=== PATIENT | female | born 1980 ===

== ENCOUNTER 2019-01-17 10:15 | Inpatient (IN) | payer BC, MEDICAID ==
[2019-01-17] MEDS ORDERED: Sodium Chloride 0.9% 1,000 ML IV ONE (11:26)
[2019-01-17] MEDS ORDERED: Sodium Chloride 0.9% 250 ML IV ONE (11:41)
[2019-01-17 12:07] LABS: BASO % 0.9 % (0.0-2.0); EOS # 0.2 K/uL (0.0-0.7); EOS % 4.3 % (0.0-4.0); HEMOGLOBIN 6.6 g/dL (11.0-16.0); LYMPH # 1.2 K/uL (1.0-4.3); LYMPH % 22.2 % (20.0-40.0); MEAN CORPUSCULAR HEMOGLOBIN 17.2 pg (27.0-31.0); MEAN CORPUSCULAR HGB CONC 29.9 g/dL (33.0-37.0); MONO # 0.5 K/uL (0.0-0.8); MONO % 8.9 % (0.0-10.0); NEUT # 3.3 K/uL (1.8-7.0); NEUT % 63.7 % (50.0-75.0); NRBC % 0.1 % (0.0-2.0); RBC 3.85 Mil/uL (3.80-5.20); RED CELL DISTRIBUTION WIDTH 20.2 % (11.5-14.5); WHITE BLOOD COUNT 5.2 K/uL (4.8-10.8)
[2019-01-17 12:09] LABS: MEAN CELL VOLUME 57.3 fL (81.0-99.0)
[2019-01-17 12:12] LABS: HCG,QUALITATIVE URINE NEGATIVE (NEGATIVE)
[2019-01-17 12:18] LABS: SQUAMOUS EPITHIAL < 1 /hpf (0-5); URINE BILIRUBIN NEGATIVE (NEGATIVE); URINE BLOOD NEGATIVE (NEGATIVE); URINE CLARITY Clear (Clear); URINE COLOR Yellow (YELLOW); URINE GLUCOSE (UA) NORMAL (Normal); URINE LEUKOCYTE ESTERASE NEG Leu/uL (Negative); URINE PROTEIN NEGATIVE (NEGATIVE); URINE UROBILINOGEN NORMAL mg/dL (0.2-1.0)
[2019-01-17 12:19] LABS: ALB/GLOB RATIO 1.4 (1.0-2.1); ALBUMIN 4.5 g/dL (3.5-5.0); ALT/SGPT 8 U/L (9-52); AST/SGOT 23 U/L (14-36); BLOOD UREA NITROGEN 11 mg/dL (7-17); CALCIUM 9.1 mg/dl (8.6-10.4); GFR NON-AFRICAN AMERICAN > 60
[2019-01-17 12:20] LABS: INR 1.1; PROTHROMBIN TIME 12.4 SECONDS (9.7-12.2)
--- NOTE | 2019-01-17 13:24 | C.PDOC ---
History Of Present Illness 38 yo female w/hx of anemia, s/p transfusion, comes in for evaluation of gradual onset of weakness, bodyaches, intermittent dizziness developed for past few months. Denies recent illness, fever, chills, severe headache, visual changes, CP, SOB, dyspnea, palpitation, abd. pain, V/D, UTI sx. AMbualtory, not in any apparent distress. Time Seen by Provider: 01/17/19 11:25 Chief Complaint (Nursing): Headache History Per: Patient Past Medical History Reviewed: Historical Data, Nursing Documentation, Vital Signs Vital Signs: Last Vital Signs Temp 98.1 F 01/17/19 10:25 Pulse 92 H 01/17/19 10:25 Resp 18 01/17/19 10:25 BP 121/78 01/17/19 10:25 Pulse Ox 100 01/17/19 10:25 - Medical History PMH: Anemia Surgical History: Appendectomy Family History: States: Unknown Family Hx, Diabetes - Social History Hx Tobacco Use: No Hx Alcohol Use: No Hx Substance Use: No - Immunization History Hx Tetanus Toxoid Vaccination: No Hx Influenza Vaccination: No Hx Pneumococcal Vaccination: No Review Of Systems Except As Marked, All Systems Reviewed And Found Negative. Constitutional: Positive for: Weakness, Malaise. Negative for: Fever, Chills Eyes: Negative for: Vision Change ENT: Negative for: Ear Discharge, Nose Discharge Cardiovascular: Negative for: Chest Pain, Palpitations, Light Headedness Respiratory: Negative for: Cough, Shortness of Breath, SOB with Excertion Gastrointestinal: Negative for: Nausea, Vomiting, Abdominal Pain, Diarrhea Genitourinary: Negative for: Frequency Neurological: Negative for: Altered Mental Status, Headache Physical Exam - Physical Exam Appears: Well, No Acute Distress Skin: Normal Color, Warm, Dry, Rash (scatteerd dry eczema-like rash to posterior upper back) Eye(s): bilateral: PERRL Nose: No Flaring, No Discharge Oral Mucosa: Moist Tongue: Normal Appearing Lips: Normal Appearing Throat: No Drooling Neck: Trachea Midline, Supple Cardiovascular: Rhythm Regular, No Murmur, No JVD Respiratory: No Decreased Breath Sounds, No Accessory Muscle Use, No Stridor, No Wheezing Gastrointestinal/Abdominal: Soft, No Tenderness, No Distention, No Guarding, No Rebound Extremity: Normal ROM, No Deformity, No Swelling Neurological/Psych: Oriented x3, Normal Speech ED Course And Treatment - Laboratory Results Result Diagrams: 01/17/19 12:00 01/17/19 12:00 Lab Results: PT 12.4 SECONDS (9.7-12.2) H 01/17/19 12:00 INR 1.1 01/17/19 12:00 APTT 32 SECONDS (21-34) 01/17/19 12:00 Total Bilirubin 0.3 mg/dL (0.2-1.3) 01/17/19 12:00 AST 23 U/L (14-36) 01/17/19 12:00 ALT 8 U/L (9-52) L 01/17/19 12:00 Alkaline Phosphatase 42 U/L (38-126) 01/17/19 12:00 Total Protein 7.7 g/dL (6.3-8.3) 01/17/19 12:00 Albumin 4.5 g/dL (3.5-5.0) 01/17/19 12:00 Globulin 3.2 gm/dL (2.2-3.9) 01/17/19 12:00 Albumin/Globulin Ratio 1.4 (1.0-2.1) 01/17/19 12:00 Urine Color Yellow (YELLOW) 01/17/19 12:00 Urine Clarity Clear (Clear) 01/17/19 12:00 Urine pH 7.0 (5.0-8.0) 01/17/19 12:00 Ur Specific [place] 1.013 (1.003-1.030) 01/17/19 12:00 Urine Protein Negative mg/dL (NEGATIVE) 01/17/19 12:00 Urine Glucose (UA) Normal mg/dL (Normal) 01/17/19 12:00 Urine Ketones Negative mg/dL (NEGATIVE) 01/17/19 12:00 Urine Blood Negative (NEGATIVE) 01/17/19 12:00 Urine Nitrate Negative (NEGATIVE) 01/17/19 12:00 Urine Bilirubin Negative (NEGATIVE) 01/17/19 12:00 Urine Urobilinogen Normal mg/dL (0.2-1.0) 01/17/19 12:00 Ur Leukocyte Esterase Neg [place]/uL (Negative) 01/17/19 12:00 Urine WBC (Auto) < 1 /hpf (0-5) 01/17/19 12:00 Urine RBC (Auto) 1 /hpf (0-3) 01/17/19 12:00 Ur Squamous Epith Cells < 1 /hpf (0-5) 01/17/19 12:00 Urine HCG, Qual Negative (NEGATIVE) 01/17/19 12:00 Urine HCG, Qual Negative (NEGATIVE) 01/17/19 12:00 Lab Interpretation: Abnormal Urine POC: Negative ECG: Interpreted By Me, Viewed By Me Interpretation Of ECG: SR@77/min, NAD, no acute t wave or ST-T changes O2 Sat by Pulse Oximetry: 100 Pulse Ox Interpretation: Normal Progress Note: Blood work review, appears abnormal. Evidence of acute anemia. Pt admits, "(+) heavy menstrual bleeding sometime". Results review and discussed with pt, blood transfusion offered, pt acceptes. T+S, RBC ordered. Case discussed with and admission arranged to tele OBS Disposition - Disposition Disposition: HOSPITALIZED Disposition Time: 13:24 Condition: STABLE - Clinical Impression Clinical Impression: Acute anemia
--- NOTE | 2019-01-17 13:25 | RAD ---
HISTORY: weakness COMPARISON: Chest x-ray performed 12/28/12 TECHNIQUE: Chest PA and lateral FINDINGS: LUNGS: No focal consolidation. Please note that chest x-ray has limited sensitivity for the detection of pulmonary masses. PLEURA: No significant pleural effusion identified. No definite pneumothorax . CARDIOVASCULAR: Heart size appears within normal limits. No atherosclerotic calcification appreciated. OSSEOUS STRUCTURES: No acute osseous abnormality is detected. VISUALIZED UPPER ABDOMEN: Unremarkable. OTHER FINDINGS: None. IMPRESSION: No focal consolidation.
[2019-01-17 13:51] LABS: % IRON SATURATION 49 (20-55); IRON 177 ug/dL (37-170); TOTAL IRON BINDING CAPACITY 362 ug/dL (250-450)
[2019-01-17 14:54] LABS: FOLATE 16.7 ng/mL
--- NOTE | 2019-01-17 17:57 | CP.PCM.PN ---
Subjective - Date & Time of Evaluation Date of Evaluation: 01/17/19 Time of Evaluation: 17:56 - Subjective Subjective: H&P dictated #[id number] Objective - Vital Signs/Intake and Output Vital Signs (last 24 hours): Temp Pulse Resp BP Pulse Ox 99.0 F 75 20 113/61 100 01/17/19 15:37 01/17/19 15:37 01/17/19 15:37 01/17/19 15:37 01/17/19 17:37 - Labs Labs: 01/17/19 12:00 01/17/19 12:00 PT 12.4 SECONDS (9.7-12.2) H 01/17/19 12:00 INR 1.1 01/17/19 12:00 APTT 32 SECONDS (21-34) 01/17/19 12:00
[2019-01-17 23:51] LABS: FSH 9.2 mIU/mL; PROLACTIN 25.6 ng/mL (3.0-18.9)
--- NOTE | 2019-01-18 05:00 | HP ---
CHIEF COMPLAINT: Generalized body aches, difficulty breathing on exertion, heaviness in the hands and itching of the feet and rash, progressively getting worse over the past few days. HISTORY OF PRESENT ILLNESS: The patient is a 38-year-old female from [place], who has been following up with PMD from [facility] a while ago, has not seen PMD in the past 6 months, who had a prior history of anemia and blood transfusions. Last time she received blood transfusion was about a year ago. Earlier to that, received blood transfusion in 2006, questionable history of lupus, diagnosed in the city about two years ago, not on any medication, questionable sickle cell trait, has been on iron supplements, [place], came into the emergency room with complaints of generalized body aches, more so on the joints, fatigue, weakness and dyspnea on exertion. Claiming that she felt like she needed air when she was doing strenuous activity and complaining of heaviness in the hands and the feet, itching on and off. All the symptoms progressively getting worse over the past six months. Denies any headache. Denies any dizziness. Denies any chest pain. Denies any nausea, vomiting, abdominal pain, diarrhea, or constipation. Denies any black colored stools. Denies any use of NSAIDs or any other pain medication, thinks that her periods are heavy lasting for seven days, first two days especially claims that . She is in her periods now. Denies following up with any [employer] physician here. Denies any other complaints. PAST MEDICAL HISTORY: As described, history of anemia with blood transfusion, questionable history of lupus, questionable history of sickle cell trait. FAMILY HISTORY: Sickle cell trait in the father. PERSONAL HISTORY: She is single. Not having any children. Lives with her parent. Unemployed. SOCIAL HISTORY: Denies smoking, alcohol, or drug abuse. ALLERGIES: NO KNOWN DRUG ALLERGIES. MEDICATIONS: iron at home. PAST SURGICAL HISTORY: Fibroid uterus surgery and appendectomy. REVIEW OF SYSTEMS: As described in the history of present illness. All other systems reviewed and were found to be negative. PHYSICAL EXAMINATION: GENERAL: A young female, lying in bed, in no acute distress. VITAL SIGNS: Blood pressure 113/61, pulse 75, respirations 20, temperature 99 degrees Fahrenheit, and O2 sat 100% on room air. HEENT: Pupils equal, round, and reacting to light and accommodation. Extraocular muscles intact. No icterus. Positive pallor. No oral thrush. No pharyngeal congestion. NECK: Supple. No JVD. LUNGS: Bilateral vesicular breath sounds. No wheezing. No rhonchi. CARDIOVASCULAR SYSTEM: S1 and S2 present. Regular. ABDOMEN: Soft, nontender. Bowel sounds present. No guarding. No rigidity. No rebound tenderness noted. CENTRAL NERVOUS SYSTEM: Alert, awake, oriented x3. No focal deficits noted. EXTREMITIES: No edema. Palpable peripheral pulses. LABORATORY DATA: Done from emergency room, WBC 5.2, hemoglobin 6.6, hematocrit 22.1, platelets 372, reticulocyte count 3.8, PT 12.4, INR 1.1, PTT 32. Sodium 137, potassium 3.9, chloride 102, bicarbonate 26, BUN 11, creatinine 0.6, glucose 92, calcium 9.1, iron 177, TIBC 362, iron saturation 49, total bilirubin 0.3, AST 23, ALT 8, alkaline phosphatase 42, LDH 428, total protein 7.7, albumin 4.5, globulin 3.2, B12 is 686, folate 16.7, free T4 1.08, thyroxine 7.89, TSH 2.9. UA negative. Beta hCG is negative. Influenza negative. Chest x-ray, no focal consolidation. EKG consistent with a normal sinus rhythm at 77 beats per minute, no acute ST-T changes. ASSESSMENT: A young female with prior history of anemia, status post multiple transfusions, recent transfusion was about a year ago, questionable diagnosis of lupus and sickle cell trait. As per the mother, she was diagnosed with sickle cell when she was 8 years old and not following up with any physician, last seen physician was about 6 months ago, came in to the emergency room with generalized body aches, fatigue, weakness and dyspnea on exertion. In the emergency room, the patient was found to be having hemoglobin of 6.6 and the patient is seen and admitted for further evaluation. 1. Severe symptomatic anemia, rule out secondary to fibroid uterus and menorrhagia, rule out hemoglobinopathy, rule out sickle cell anemia, rule out other hematologic disorders. 2. Questionable history of lupus. PLAN: The patient is being admitted to telemetry. We will give 2 units of PRBC transfusion, check serial CBCs, check hemoglobin electrophoresis, sickle cell screen and check ultrasound of the abdomen and pelvis to rule out any gynecology pathology, obtain hematology consult and gynecology consult. We will monitor the patient's CBC. We will give pain medication as needed. We will add further recommendation as her clinical course progresses. Soniavalenin Martinez MD
[2019-01-18 07:37] LABS: BASO # 0.1 K/uL (0.0-0.2); BASO % 1.1 % (0.0-2.0); EOS # 0.2 K/uL (0.0-0.7); HEMOGLOBIN 7.4 g/dL (11.0-16.0); LYMPH # 1.1 K/uL (1.0-4.3); LYMPH % 24.3 % (20.0-40.0); MEAN CORPUSCULAR HEMOGLOBIN 18.5 pg (27.0-31.0); MEAN PLATELET VOLUME 9.1 fL (7.2-11.7); MONO # 0.5 K/uL (0.0-0.8); MONO % 9.5 % (0.0-10.0); NEUT # 2.8 K/uL (1.8-7.0); NEUT % 60.1 % (50.0-75.0); NRBC % 0.1 % (0.0-2.0); RBC 4.02 Mil/uL (3.80-5.20); RED CELL DISTRIBUTION WIDTH 24.9 % (11.5-14.5); WHITE BLOOD COUNT 4.7 K/uL (4.8-10.8)
[2019-01-18 07:38] LABS: MEAN CELL VOLUME 61.5 fL (81.0-99.0)
[2019-01-18 07:57] LABS: ALB/GLOB RATIO 1.2 (1.0-2.1); ALBUMIN 3.6 g/dL (3.5-5.0); ALT/SGPT 7 U/L (9-52); AST/SGOT 16 U/L (14-36); BLOOD UREA NITROGEN 10 mg/dL (7-17); CALCIUM 8.5 mg/dl (8.6-10.4); GFR NON-AFRICAN AMERICAN > 60; HDL CHOLESTEROL 41 mg/dL (30-70)
[2019-01-18 08:23] VITALS: RESP 20
[2019-01-18 08:28] LABS: COMPLEMENT C4 15.7 mg/dL (14.0-44.0)
[2019-01-18 08:34] LABS: LDL CHOLESTEROL 80 mg/dL (0-129)
[2019-01-18 08:47] LABS: FERRITIN 7.7 ng/mL
--- NOTE | 2019-01-18 09:56 | CP.PCM.PN ---
Subjective - Date & Time of Evaluation Date of Evaluation: 01/18/19 Time of Evaluation: 09:45 - Subjective Subjective: Progress note dictated #[id number] Objective - Vital Signs/Intake and Output Vital Signs (last 24 hours): Temp Pulse Resp BP Pulse Ox 97.7 F 72 20 101/69 96 01/18/19 08:22 01/18/19 08:22 01/18/19 08:22 01/18/19 08:22 01/18/19 08:22 Intake and Output: 01/18/19 01/18/19 06:59 18:59 Intake Total 1850 Balance 1850 - Medications Medications: Current Medications Acetaminophen (Tylenol 325mg Tab) 650 mg PO Q6 PRN PRN Reason: Pain, moderate (4-7) - Labs Labs: 01/18/19 07:25 01/18/19 07:25 PT 12.4 SECONDS (9.7-12.2) H 01/17/19 12:00 INR 1.1 01/17/19 12:00 APTT 32 SECONDS (21-34) 01/17/19 12:00
--- NOTE | 2019-01-18 11:27 | US ---
Date of service: 01/17/2019 HISTORY: Severe Anemia/ Menorrhagia COMPARISON: None available. TECHNIQUE: Transabdominal and transvaginal pelvic ultrasound was performed. FINDINGS: UTERUS: Measures 14.0 x 7.3 x 7.9 cm. Anteverted and enlarged. There is a 3.3 x 2.3 x 2.8 cm submucosal fundal fibroid, 2.6 x 2.4 x 2.5 cm anterior wall submucosal fibroid in the midbody of the uterus 2.7 x 2.2 x 2.5 cm intramural anterior wall fibroid in the midbody of the uterus and 3.6 x 2.5 x 3.7 cm anterior wall intramural fibroid in the lower uterine segment. ENDOMETRIUM: Measures 8.8 mm in diameter. Partially obscured by fibroids. CERVIX: No cervical abnormality identified. RIGHT OVARY: Measures 6.2 x 4.7 x 6.2 cm. No solid mass. Normal flow. There is a 4.3 x 2.6 x 5.4 cm simple cyst. LEFT OVARY: Measures 2.5 x 2.2 x 2.7 cm. No solid mass. Normal flow. There is a 1.1 x 1.5 cm complicated/hemorrhagic cyst. FREE FLUID: No significant free fluid noted. OTHER FINDINGS: None. IMPRESSION: 1. Enlarged fibroid uterus, the largest anterior wall intramural fibroid in the lower uterine segment measures 3.6 x 3.5 x 3.7 cm. 2. 4.3 x 2.6 x 5.4 cm simple cyst in the right ovary. Follow-up ultrasound in 3-6 month interval is recommended to assess stability/resolution of this probably benign cyst. A preliminary report was provided by [facility].
--- NOTE | 2019-01-18 12:05 | US ---
Date of service: 01/17/2019 HISTORY: anemia, r/o fibroid COMPARISON: None. TECHNIQUE: Sonographic evaluation of the abdomen. FINDINGS: LIVER: Measures 15.4 cm. Diffusely increased echogenicity of the liver parenchyma. Consistent with fatty infiltration. Smooth contour. No mass. No biliary ductal dilatation. Normal hepatopetal portal venous flow. GALLBLADDER: Unremarkable. No gallstones. COMMON BILE DUCT: Measures 6 mm. No stones. No dilatation. PANCREAS: Unremarkable as visualized. No mass. No ductal dilatation. RIGHT KIDNEY: Measures 12.0cm. Normal echogenicity. No calculus, mass, or hydronephrosis. LEFT KIDNEY: Measures 10.9cm. Normal echogenicity. No calculus, mass, or hydronephrosis. SPLEEN: Normal size. No mass. Two small isoechoic masses in splenic hilar region likely accessory splenules. AORTA: No aneurysmal dilatation. IVC: Unremarkable. OTHER FINDINGS: None. IMPRESSION: Mild fatty infiltration of the liver. No other significant abnormality The preliminary findings for this examination were reported by [facility] at 12:01 a.m. on 01/18/2019. There is concurrence of this report with the preliminary findings.
--- NOTE | 2019-01-18 15:30 | CARD ---
APPROVED REPORT Date of service: 01/17/2019 EKG Measurement Heart [id number] <Conclusion> Normal sinus rhythm Possible Left atrial enlargement Cannot rule out Anterior infarct, age undetermined Abnormal ECG
--- NOTE | 2019-01-18 16:32 | CP.PCM.CON ---
<Gema Kaur - Last Filed: 01/18/19 16:49> History of Present Illness - History of Present Illness History of Present Illness: OBGYN CONSULT NOTE FOR DR. 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 Pt reports she has had these symptoms previously that usually occur during menstruation. Symptoms have progressively worsened over the past 6 months. Her LMP was on 01/09/19. 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 She uses 1 pad/hour when the bleeding is at its maximum. Currently she reports minimal bleeding. She reports she had her terminated in 2006 after 5 months and subsequently underwent myomectomy in the [place]. She had received her first blood transfusion during the termination of . She had received a 2nd blood transfusion of 2upRBC last year for similar symptoms of fatigue. Pt currently denies fevers, chills, headache, dizziness, chest pain, palpitations, shortness of breath, nausea, vomiting, constipation, diarrhea, dysuria, hematuria, hematochezia. Ob Hx: 1 prior in 2006. Termination of at 5 months with D&C. 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 Doesn't recall hx of STI, however unsure. Menarche: 9 y/o. Last Pap smear 1 year ago with a PMD:normal. Reports history of previous Pap smear in [facility] [place] requiring "cauterization" PMH: anemia, questionable SLE, sickle cell trait All: NKDA PSH: myomectomy 2006, D&C 2006, "cauterization" 2010, appendectomy SH: Denies tobacco, ETOH, illicit drug use. No current sexual partners. Pt is still considering having children FH: Mother (60s): HTN, Father (60s): Anemia, HTN. 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 PMD: Doesnt recall name, hasn't followed up in past 6 months Review of Systems - Review of Systems Review of Systems: per HPI Past Patient History - Past Medical History & Family History Past Medical History?: Yes - Past Social History Smoking Status: Never Smoked - CARDIAC Hx Cardiac Disorders: No - PULMONARY Hx Respiratory Disorders: No - NEUROLOGICAL Hx Neurological Disorder: No - HEENT Hx HEENT Problems: No - RENAL Hx Chronic Kidney Disease: No - ENDOCRINE/METABOLIC Hx Endocrine Disorders: No Hx Systemic Lupus Erythematosus: Yes - HEMATOLOGICAL/ONCOLOGICAL Hx Blood Disorders: Yes Hx Anemia: Yes Hx Blood Transfusions: Yes Other/Comment: HX SLE - INTEGUMENTARY Hx Dermatological Problems: No - MUSCULOSKELETAL/RHEUMATOLOGICAL Hx Musculoskeletal Disorders: No Hx Falls: No - GASTROINTESTINAL Hx Gastrointestinal Disorders: No - GENITOURINARY/GYNECOLOGICAL Hx Genitourinary Disorders: No - PSYCHIATRIC Hx Psychophysiologic Disorder: No Hx Substance Use: No - SURGICAL HISTORY Hx Surgeries: Yes Hx Appendectomy: Yes - ANESTHESIA Hx Anesthesia: Yes Hx Anesthesia Reactions: No Has any member of the family had a problem w/ anesthesia?: No Meds Allergies/Adverse Reactions: Allergies Allergy/AdvReac Type Severity Reaction Status Date / Time No Known Allergies Allergy Verified 12/11/16 09:15 - Medications Medications: Current Medications Acetaminophen (Tylenol 325mg Tab) 650 mg PO Q6 PRN PRN Reason: Pain, moderate (4-7) Ferric Sodium Gluconate Complex (Ferrlecit) 125 mg IVPB Q24H ROBERT Stop: 01/26/19 16:01 Physical Exam - Constitutional Appears: Well, Non-toxic, No Acute Distress - Head Exam Head Exam: NORMAL INSPECTION, NORMOCEPHALIC - Eye Exam Eye Exam: EOMI, Normal appearance - Neck Exam Neck exam: Positive for: Normal Inspection - Respiratory Exam Respiratory Exam: Clear to Auscultation Bilateral, NORMAL BREATHING PATTERN - Cardiovascular Exam Cardiovascular Exam: REGULAR RHYTHM, +S1, +S2 - GI/Abdominal Exam GI & Abdominal Exam: Normal Bowel Sounds, Soft. absent: Tenderness - Extremities Exam Extremities exam: Positive for: normal inspection. Negative for: calf tenderness, pedal edema - Back Exam Back exam: NORMAL INSPECTION - Neurological Exam Neurological exam: Alert, Oriented x3 - Psychiatric Exam Psychiatric exam: Normal Affect, Normal Mood - Skin Skin Exam: Dry, Intact, Warm Results - Vital Signs Recent Vital Signs: Last Vital Signs Temp 98.2 F 01/18/19 15:00 Pulse 87 01/18/19 15:00 Resp 20 01/18/19 15:00 BP 111/75 01/18/19 15:00 Pulse Ox 96 01/18/19 15:00 - Labs Result Diagrams: 01/18/19 07:25 01/18/19 07:25 Labs: Laboratory Results - last 24 hr 01/17/19 01/17/19 01/18/19 13:45 23:20 07:25 WBC 4.7 L RBC 4.02 Hgb 7.4 L Hct 24.7 L MCV 61.5 L D MCH 18.5 L MCHC 30.0 L RDW 24.9 H Plt Count 313 MPV 9.1 Neut % (Auto) 60.1 Lymph % (Auto) 24.3 [place] % (Auto) 9.5 Eos % (Auto) 5.0 H Baso % (Auto) 1.1 Neut # (Auto) 2.8 Lymph # (Auto) 1.1 [place] # (Auto) 0.5 Eos # (Auto) 0.2 Baso # (Auto) 0.1 ESR 28 H Sickle Cell Screen Sodium Potassium Chloride Carbon Dioxide Anion Gap BUN Creatinine Est GFR ( Amer) Est GFR (Non-Af Amer) Random Glucose Hemoglobin A1c Calcium Phosphorus Magnesium Ferritin Total Bilirubin AST ALT Alkaline Phosphatase C-Reactive Protein Total Protein Albumin Globulin Albumin/Globulin Ratio Triglycerides Cholesterol LDL Cholesterol Direct HDL Cholesterol TSH 3rd Generation 3.88 FSH 3rd Generation 9.2 Luteinizing Hormone 5.6 Prolactin 25.6 H Complement C3 Complement C4 Blood Type A POSITIVE Blood Type Confirm A POSITIVE Antibody Screen Positive Antibody Identification Anti S Antigen Identification S Antigen - NEGATIVE 01/18/19 01/18/19 01/18/19 07:25 07:25 07:25 WBC RBC Hgb Hct MCV MCH MCHC RDW Plt Count MPV Neut % (Auto) Lymph % (Auto) [place] % (Auto) Eos % (Auto) Baso % (Auto) Neut # (Auto) Lymph # (Auto) [place] # (Auto) Eos # (Auto) Baso # (Auto) ESR Sickle Cell Screen Sodium 137 Potassium 4.0 Chloride 105 Carbon Dioxide 24 Anion Gap 12 BUN 10 Creatinine 0.6 L Est GFR ( Amer) > 60 Est GFR (Non-Af Amer) > 60 Random Glucose 89 Hemoglobin A1c 5.0 Calcium 8.5 L Phosphorus 4.1 Magnesium 2.1 Ferritin 7.7 Total Bilirubin 0.4 AST 16 ALT 7 L Alkaline Phosphatase 40 C-Reactive Protein < 5.00 Total Protein 6.6 Albumin 3.6 Globulin 3.0 Albumin/Globulin Ratio 1.2 Triglycerides 63 Cholesterol 129 LDL Cholesterol Direct 80 HDL Cholesterol 41 TSH 3rd Generation 2.81 FSH 3rd Generation Luteinizing Hormone Prolactin Complement C3 90.0 Complement C4 15.7 Blood Type Blood Type Confirm Antibody Screen Antibody Identification Antigen Identification 01/18/19 09:13 WBC RBC Hgb Hct MCV MCH MCHC RDW Plt Count MPV Neut % (Auto) Lymph % (Auto) [place] % (Auto) Eos % (Auto) Baso % (Auto) Neut # (Auto) Lymph # (Auto) [place] # (Auto) Eos # (Auto) Baso # (Auto) ESR Sickle Cell Screen Positive H Sodium Potassium Chloride Carbon Dioxide Anion Gap BUN Creatinine Est GFR ( Amer) Est GFR (Non-Af Amer) Random Glucose Hemoglobin A1c Calcium Phosphorus Magnesium Ferritin Total Bilirubin AST ALT Alkaline Phosphatase C-Reactive Protein Total Protein Albumin Globulin Albumin/Globulin Ratio Triglycerides Cholesterol LDL Cholesterol Direct HDL Cholesterol TSH 3rd Generation FSH 3rd Generation Luteinizing Hormone Prolactin Complement C3 Complement C4 Blood Type Blood Type Confirm Antibody Screen Antibody Identification Antigen Identification Assessment & Plan - Assessment and Plan (Free Text) Assessment: 38 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 Pt is s/p 2u pRBC with appropriate response. Currently hemodynamically stable with improvement in symptoms Plan: - Pt doesn't require acute surgical intervention or uterine embolization at this time - Discussed possibility of future pregnancies. 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 Given AUB, pt would benefit from endometrial biopsy to assess for malignancy as an outpatient - continue iron supplementation - follow up with heme/onc recs for management of acute blood loss - Further medical management per primary team Abdomen/Pelvis/Transvaginal U/S: 1. Enlarged fibroid uterus, the largest anterior wall intramural fibroid in the lower uterine segment measures 3.6 x 3.5 x 3.7 cm. 2. 4.3 x 2.6 x 5.4 cm simple cyst in the right ovary. Follow-up ultrasound in 3-6 month interval is recommended to assess stability/resolution of this probably benign cyst Abdomen U/S: Mild fatty infiltration of the liver. No other significant abnormality Patient seen, examined and case discussed with attending physician, Dr. Meza. Further recs per attending Gema Kaur PGY1 <Nancy Meza - Last Filed: 01/18/19 22:51> Meds - Medications Medications: Current Medications Acetaminophen (Tylenol 325mg Tab) 650 mg PO Q6 PRN PRN Reason: Pain, moderate (4-7) Ferric Sodium Gluconate Complex (Ferrlecit) 125 mg IVPB Q24H ROBERT Stop: 01/26/19 16:01 Last Admin: 01/18/19 16:42 Dose: 125 mg Results - Vital Signs Recent Vital Signs: Last Vital Signs Temp 98.2 F 01/18/19 15:00 Pulse 87 01/18/19 15:00 Resp 20 01/18/19 15:00 BP 111/75 01/18/19 15:00 Pulse Ox 96 01/18/19 15:00 - Labs Result Diagrams: 01/18/19 07:25 01/18/19 07:25 Labs: Laboratory Results - last 24 hr 01/17/19 01/17/19 01/18/19 13:45 23:20 07:25 WBC 4.7 L RBC 4.02 Hgb 7.4 L Hct 24.7 L MCV 61.5 L D MCH 18.5 L MCHC 30.0 L RDW 24.9 H Plt Count 313 MPV 9.1 Neut % (Auto) 60.1 Lymph % (Auto) 24.3 [place] % (Auto) 9.5 Eos % (Auto) 5.0 H Baso % (Auto) 1.1 Neut # (Auto) 2.8 Lymph # (Auto) 1.1 [place] # (Auto) 0.5 Eos # (Auto) 0.2 Baso # (Auto) 0.1 ESR 28 H Sickle Cell Screen Sodium Potassium Chloride Carbon Dioxide Anion Gap BUN Creatinine Est GFR ( Amer) Est GFR (Non-Af Amer) Random Glucose Hemoglobin A1c Calcium Phosphorus Magnesium Ferritin Total Bilirubin AST ALT Alkaline Phosphatase C-Reactive Protein Total Protein Albumin Globulin Albumin/Globulin Ratio Triglycerides Cholesterol LDL Cholesterol Direct HDL Cholesterol TSH 3rd Generation 3.88 FSH 3rd Generation 9.2 Luteinizing Hormone 5.6 Prolactin 25.6 H Complement C3 Complement C4 Blood Type A POSITIVE Blood Type Confirm A POSITIVE Antibody Screen Positive Antibody Identification Anti S Antigen Identification S Antigen - NEGATIVE 01/18/19 01/18/19 01/18/19 07:25 07:25 07:25 WBC RBC Hgb Hct MCV MCH MCHC RDW Plt Count MPV Neut % (Auto) Lymph % (Auto) [place] % (Auto) Eos % (Auto) Baso % (Auto) Neut # (Auto) Lymph # (Auto) [place] # (Auto) Eos # (Auto) Baso # (Auto) ESR Sickle Cell Screen Sodium 137 Potassium 4.0 Chloride 105 Carbon Dioxide 24 Anion Gap 12 BUN 10 Creatinine 0.6 L Est GFR ( Amer) > 60 Est GFR (Non-Af Amer) > 60 Random Glucose 89 Hemoglobin A1c 5.0 Calcium 8.5 L Phosphorus 4.1 Magnesium 2.1 Ferritin 7.7 Total Bilirubin 0.4 AST 16 ALT 7 L Alkaline Phosphatase 40 C-Reactive Protein < 5.00 Total Protein 6.6 Albumin 3.6 Globulin 3.0 Albumin/Globulin Ratio 1.2 Triglycerides 63 Cholesterol 129 LDL Cholesterol Direct 80 HDL Cholesterol 41 TSH 3rd Generation 2.81 FSH 3rd Generation Luteinizing Hormone Prolactin Complement C3 90.0 Complement C4 15.7 Blood Type Blood Type Confirm Antibody Screen Antibody Identification Antigen Identification 01/18/19 09:13 WBC RBC Hgb Hct MCV MCH MCHC RDW Plt Count MPV Neut % (Auto) Lymph % (Auto) [place] % (Auto) Eos % (Auto) Baso % (Auto) Neut # (Auto) Lymph # (Auto) [place] # (Auto) Eos # (Auto) Baso # (Auto) ESR Sickle Cell Screen Positive H Sodium Potassium Chloride Carbon Dioxide Anion Gap BUN Creatinine Est GFR ( Amer) Est GFR (Non-Af Amer) Random Glucose Hemoglobin A1c Calcium Phosphorus Magnesium Ferritin Total Bilirubin AST ALT Alkaline Phosphatase C-Reactive Protein Total Protein Albumin Globulin Albumin/Globulin Ratio Triglycerides Cholesterol LDL Cholesterol Direct HDL Cholesterol TSH 3rd Generation FSH 3rd Generation Luteinizing Hormone Prolactin Complement C3 Complement C4 Blood Type Blood Type Confirm Antibody Screen Antibody Identification Antigen Identification Attending/Attestation - Attestation I have personally seen and examined this patient.: Yes I have fully participated in the care of the patient.: Yes I have reviewed all pertinent clinical information: Yes Notes (Text): 01/18/19 22:49 Patient seen, evaluated by me with the resident. I agree with the above as documented. No surgical intervention at this time. Patient advised to establish chainstitch hemmer relationship as an outpatient for further discussion and plans for her future gynecological health. Thank you for the pleasure of this consultation
[2019-01-18] MEDS: Ferric Sodium Gluconat Complex 62.5 mg/5 ml Vial IVPB SCH (16:42)
--- NOTE | 2019-01-18 19:18 | PN ---
DATE: 01/18/2019 SUBJECTIVE: The patient is seen and examined at bedside. The patient is slightly better. Received 1 PRBC last night. Denies any new complaints. PHYSICAL EXAMINATION: GENERAL: Young female, lying in bed, in no acute distress. VITAL SIGNS: Blood pressure 111/75, pulse 87, respirations 20, temperature 98.2 degrees Fahrenheit, O2 saturations 96% on room air. HEENT: Pupils equal, round, and reacting to light and accommodation. Extraocular muscles intact. No icterus. Positive pallor. Dry mucous membranes. NECK: Supple. No JVD. LUNGS: Bilateral vesicular breath sounds. No wheezing. No rhonchi. CARDIOVASCULAR SYSTEM: S1, S2 present. Regular. ABDOMEN: Soft, nontender. Bowel sounds present. No guarding. No rigidity. No rebound tenderness noted. CENTRAL NERVOUS SYSTEM: Alert, awake, oriented x3. No focal deficits noted. EXTREMITIES: No edema. Palpable peripheral pulses. MEDICATIONS: Tylenol as needed, ferrous 125 mg IV every 24 hours. LABORATORY DATA: Labs done from this morning, WBC 4.7, hemoglobin 7.4, hematocrit 24.7, platelets 313. Sickle cell screen is positive. ESR 28. Sodium 137, potassium 4.2, chloride 105, bicarb 24, BUN 10, creatinine 0.6, glucose 89, hemoglobin A1c 5. Calcium 8.5, phosphorus 4.1, magnesium 2.1. Ferritin 7.7. AST 16, ALT 7, alkaline phosphatase 40, C-reactive protein less than 0.5, total protein 6.6, albumin 3.6. Triglycerides 63, cholesterol 129, LDL 80, HDL 41. Prolactin 25.6, LH 3.6, FSH 9.2, B12 of 686, folate 16.7. UA negative. C3/C4 within normal limits. Influenza negative. ASSESSMENT AND PLAN: A young female with history of anemia, sickle cell screen positive, questionable history of lupus, admitted for severe symptomatic anemia. Received one unit of packed red blood cells transfusion with improved H and H. Gynecology consult appreciated. . Ultrasound of the uterus shows enlarged fibroid uterus, the largest anterior wall intramural fibroid in the lower uterine segment measures 3.6 x 3.5 x 3.7 and 4 x 2 x 5 simple cyst in the right ovary. Ultrasound of the abdomen consistent with mild fatty infiltration of the liver. No other significant abnormality noted. The patient is started on intravenous iron therapy. Will follow up with JOANNE and hemoglobin . Will follow up with Gynecology. Juan Antonio Martinez MD
--- NOTE | 2019-01-19 01:51 | CP.PCM.CON ---
History of Present Illness - History of Present Illness History of Present Illness: 38 year old female with a history of sickle cell trait, menorrhagia secondary to uterine fibroids, chronic anemia, admitted with symptomatic anemia. She notes to progressive fatigue and pelvic discomfort which worsens with her periods. She notes to heavy bleeding for about 7-10 days. She has required prior PRBC transfusions in the past for menorrhagia. She is s/p PRBC transfusion and notes to feeling better. Transvaginal US shows uterine fibroids. Past medical history: Sickle cell trait, uterine fibroids, chronic anemia, s ickle cell trait Past surgical history: Myomectomy Family history: Leukemia runs in her family Social history: Denies tobacco, alcohol, and illicit drug use. Allergies: NKA Review of system: All remaining review of systems including HEENT, cardiovascular, respiratory, gastrointestinal, genitourinary, musculoskeletal, dermatologic, neurologic, and psychiatric are negative unless mentioned in the HPI. Past Patient History - Past Medical History & Family History Past Medical History?: Yes - Past Social History Smoking Status: Never Smoked - CARDIAC Hx Cardiac Disorders: No - PULMONARY Hx Respiratory Disorders: No - NEUROLOGICAL Hx Neurological Disorder: No - HEENT Hx HEENT Problems: No - RENAL Hx Chronic Kidney Disease: No - ENDOCRINE/METABOLIC Hx Endocrine Disorders: No Hx Systemic Lupus Erythematosus: Yes - HEMATOLOGICAL/ONCOLOGICAL Hx Blood Disorders: Yes Hx Anemia: Yes Hx Blood Transfusions: Yes Other/Comment: HX SLE - INTEGUMENTARY Hx Dermatological Problems: No - MUSCULOSKELETAL/RHEUMATOLOGICAL Hx Musculoskeletal Disorders: No Hx Falls: No - GASTROINTESTINAL Hx Gastrointestinal Disorders: No - GENITOURINARY/GYNECOLOGICAL Hx Genitourinary Disorders: No - PSYCHIATRIC Hx Psychophysiologic Disorder: No Hx Substance Use: No - SURGICAL HISTORY Hx Surgeries: Yes Hx Appendectomy: Yes - ANESTHESIA Hx Anesthesia: Yes Hx Anesthesia Reactions: No Has any member of the family had a problem w/ anesthesia?: No Meds Allergies/Adverse Reactions: Allergies Allergy/AdvReac Type Severity Reaction Status Date / Time No Known Allergies Allergy Verified 12/11/16 09:15 - Medications Medications: Current Medications Acetaminophen (Tylenol 325mg Tab) 650 mg PO Q6 PRN PRN Reason: Pain, moderate (4-7) Ferric Sodium Gluconate Complex (Ferrlecit) 125 mg IVPB Q24H ROBERT Stop: 01/26/19 16:01 Last Admin: 01/18/19 16:42 Dose: 125 mg Physical Exam - Head Exam Head Exam: ATRAUMATIC - Eye Exam Eye Exam: Normal appearance - ENT Exam ENT Exam: Mucous Membranes Dry - Respiratory Exam Respiratory Exam: NORMAL BREATHING PATTERN - Cardiovascular Exam Cardiovascular Exam: +S1, +S2 - GI/Abdominal Exam GI & Abdominal Exam: Normal Bowel Sounds - Extremities Exam Extremities exam: Positive for: normal inspection - Neurological Exam Neurological exam: Oriented x3 - Psychiatric Exam Psychiatric exam: Normal Affect, Normal Mood - Skin Skin Exam: Warm Results - Vital Signs Recent Vital Signs: Last Vital Signs Temp 98.1 F 01/18/19 23:16 Pulse 98 H 01/18/19 23:16 Resp 20 01/18/19 23:16 BP 102/67 01/18/19 23:16 Pulse Ox 96 01/18/19 23:16 - Labs Result Diagrams: 01/18/19 07:25 01/18/19 07:25 Labs: Laboratory Results - last 24 hr 01/18/19 01/18/19 01/18/19 07:25 07:25 07:25 WBC 4.7 L RBC 4.02 Hgb 7.4 L Hct 24.7 L MCV 61.5 L D MCH 18.5 L MCHC 30.0 L RDW 24.9 H Plt Count 313 MPV 9.1 Neut % (Auto) 60.1 Lymph % (Auto) 24.3 [place] % (Auto) 9.5 Eos % (Auto) 5.0 H Baso % (Auto) 1.1 Neut # (Auto) 2.8 Lymph # (Auto) 1.1 [place] # (Auto) 0.5 Eos # (Auto) 0.2 Baso # (Auto) 0.1 ESR 28 H Sickle Cell Screen Sodium 137 Potassium 4.0 Chloride 105 Carbon Dioxide 24 Anion Gap 12 BUN 10 Creatinine 0.6 L Est GFR ( Amer) > 60 Est GFR (Non-Af Amer) > 60 Random Glucose 89 Hemoglobin A1c 5.0 Calcium 8.5 L Phosphorus 4.1 Magnesium 2.1 Ferritin 7.7 Total Bilirubin 0.4 AST 16 ALT 7 L Alkaline Phosphatase 40 C-Reactive Protein < 5.00 Total Protein 6.6 Albumin 3.6 Globulin 3.0 Albumin/Globulin Ratio 1.2 Triglycerides 63 Cholesterol 129 LDL Cholesterol Direct 80 HDL Cholesterol 41 TSH 3rd Generation 2.81 Complement C3 Complement C4 01/18/19 01/18/19 07:25 09:13 WBC RBC Hgb Hct MCV MCH MCHC RDW Plt Count MPV Neut % (Auto) Lymph % (Auto) [place] % (Auto) Eos % (Auto) Baso % (Auto) Neut # (Auto) Lymph # (Auto) [place] # (Auto) Eos # (Auto) Baso # (Auto) ESR Sickle Cell Screen Positive H Sodium Potassium Chloride Carbon Dioxide Anion Gap BUN Creatinine Est GFR ( Amer) Est GFR (Non-Af Amer) Random Glucose Hemoglobin A1c Calcium Phosphorus Magnesium Ferritin Total Bilirubin AST ALT Alkaline Phosphatase C-Reactive Protein Total Protein Albumin Globulin Albumin/Globulin Ratio Triglycerides Cholesterol LDL Cholesterol Direct HDL Cholesterol TSH 3rd Generation Complement C3 90.0 Complement C4 15.7 Assessment & Plan (1) Anemia Assessment and Plan: sickle cell trait iron deficiency anemia secondary to menorrhagia secondary to uterine fibroids s/p PRBC transfusion will 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 Status: Acute
[2019-01-19 07:24] LABS: MCH 16.6 pg (27.0-33.0); MCV 60.6 fL (80.0-100.0)
--- NOTE | 2019-01-19 09:24 | CP.PCM.PN ---
Subjective - Date & Time of Evaluation Date of Evaluation: 01/19/19 Time of Evaluation: 09:24 - Subjective Subjective: Progress note dictated #[id number] Objective - Vital Signs/Intake and Output Vital Signs (last 24 hours): Temp Pulse Resp BP Pulse Ox 98 F 66 20 103/70 96 01/19/19 08:29 01/19/19 08:29 01/19/19 08:29 01/19/19 08:29 01/19/19 08:29 Intake and Output: 01/19/19 01/19/19 06:59 18:59 Intake Total 250 Balance 250 - Medications Medications: Current Medications Acetaminophen (Tylenol 325mg Tab) 650 mg PO Q6 PRN PRN Reason: Pain, moderate (4-7) Ferric Sodium Gluconate Complex (Ferrlecit) 125 mg IVPB Q24H ROBERT Stop: 01/26/19 16:01 Last Admin: 01/18/19 16:42 Dose: 125 mg - Labs Labs: 01/18/19 07:25 01/18/19 07:25 PT 12.4 SECONDS (9.7-12.2) H 01/17/19 12:00 INR 1.1 01/17/19 12:00 APTT 32 SECONDS (21-34) 01/17/19 12:00
[2019-01-19 11:19] LABS: BASO # 0.1 K/uL (0.0-0.2); EOS # 0.2 K/uL (0.0-0.7); EOS % 4.3 % (0.0-4.0); HEMOGLOBIN 8.1 g/dL (11.0-16.0); LYMPH # 0.9 K/uL (1.0-4.3); LYMPH % 18.1 % (20.0-40.0); MEAN CELL VOLUME 61.2 fL (81.0-99.0); MEAN CORPUSCULAR HEMOGLOBIN 18.5 pg (27.0-31.0); MEAN CORPUSCULAR HGB CONC 30.3 g/dL (33.0-37.0); MONO # 0.5 K/uL (0.0-0.8); MONO % 8.9 % (0.0-10.0); NEUT # 3.4 K/uL (1.8-7.0); NEUT % 67.7 % (50.0-75.0); NRBC % 0.1 % (0.0-2.0); RBC 4.4 Mil/uL (3.80-5.20); RED CELL DISTRIBUTION WIDTH 25.3 % (11.5-14.5); WHITE BLOOD COUNT 5.1 K/uL (4.8-10.8)
[2019-01-19 11:45] LABS: ALB/GLOB RATIO 1.3 (1.0-2.1); ALT/SGPT < 6 U/L (9-52); AST/SGOT 23 U/L (14-36); BLOOD UREA NITROGEN 13 mg/dL (7-17); CALCIUM 8.8 mg/dl (8.6-10.4); GFR NON-AFRICAN AMERICAN > 60
[2019-01-19 14:24] LABS: ANA PATTERN SPECKLED
[2019-01-19] MEDS: Ferric Sodium Gluconat Complex 62.5 mg/5 ml Vial IVPB SCH (15:35)
[2019-01-19 16:37] VITALS: BP 102/59; PULSE 80; TEMP 98.5; O2SAT 98
--- NOTE | 2019-01-20 04:56 | DS ---
DISCHARGE DIAGNOSES: Severe symptomatic anemia, iron deficiency anemia, dysfunctional uterine bleeding from fibroid uterus, sickle cell screen positive. HISTORY OF PRESENT ILLNESS: Ms. Troy Altman is a 38-year-old female with a past medical history of anemia, sickle cell trait with prior history of blood transfusions, questionable history of lupus, status post myomectomy in the past, came into the emergency room with complaints of generalized fatigue, weakness, and pain. In the ED, the patient was found to be having hemoglobin of 6.6, and the patient is being admitted for further management. Today, the patient is feeling better. Denies any headache, dizziness. Denies any chest pain, shortness of breath, or wheezing. Denies any nausea, vomiting, abdominal pain, diarrhea, or constipation. Denies any urinary complaints. Denies any leg pains or leg cramps. Denies any other neurologic symptoms. All other systems reviewed and were found to be negative. PHYSICAL EXAMINATION: GENERAL: Young female, lying in bed, in no acute distress. VITAL SIGNS: Blood pressure 102/59, pulse 80, respirations 20, temperature 98.5 degrees Fahrenheit, O2 sats 98% on room air. HEENT: Pupils are equal, round, and reacting to light and accommodation. Extraocular muscles are intact. No icterus. Positive pallor. No oral thrush. No pharyngeal congestion. NECK: Supple. No JVD. LUNGS: Bilateral vesicular breath sounds. No wheezing. No rhonchi. CARDIOVASCULAR SYSTEM: S1 and S2 present. Regular. ABDOMEN: Soft and nontender. Bowel sounds are present. No guarding. No rigidity. No rebound tenderness noted. CENTRAL NERVOUS SYSTEM: Alert, awake, and oriented x3. No focal deficits noted. EXTREMITIES: No edema. Palpable peripheral pulses. LABORATORY DATA: Labs from today, WBC 5.1, hemoglobin 8.1, hematocrit 26.9, platelets 339. Sickle cell screen positive. ESR 28, retic count 3.8. Sodium 136, potassium 3.9, chloride 101, bicarb 29, BUN 13, creatinine 0.7, glucose 93, calcium 8.8. Liver function tests within normal limits. UA negative. JOANNE positive 1:160. C3, C4 negative. Influenza negative. HOSPITAL COURSE: The patient was admitted to the hospital, received two units of PRBC. The patient was evaluated by [employer] and Hematology. [employer] discussed with the patient at length regarding hysterectomy, and the patient does not want to proceed with the hysterectomy at this time and would prefer to preserve the uterus at this time. [employer] recommended the patient to follow up as outpatient for further care and [employer] cleared the patient for discharge. The patient received IV iron therapy. H and H improving. The patient is also cleared by Hematology. Advised the patient to continue with iron supplementation and advised to follow up with Hematology and Rheumatology as outpatient. The patient is otherwise hemodynamically stable and advised the patient to follow up with PMD and advised to come to the ER if any worsening symptoms or any recurrent symptoms occur. CONDITION UPON DISCHARGE: The patient is alert, awake, and oriented x3 and hemodynamically stable at the time of discharge. DISCHARGE MEDICATIONS: Include iron 325 mg p.o. t.i.d., Colace 100 mg p.o. b.i.d. DISCHARGE INSTRUCTIONS: Follow up with PMD. Follow up with Hematology. Follow up with [employer] and follow up with Rheumatology. DIET: Regular. ACTIVITY: As tolerated. Juan Antonio Martinez MD
--- NOTE | 2019-01-22 01:01 | CP.PCM.PN ---
Subjective - Date & Time of Evaluation Date of Evaluation: 01/19/19 Time of Evaluation: 12:00 - Subjective Subjective: Feeling better. Objective - Vital Signs/Intake and Output Vital Signs (last 24 hours): Temp Pulse Resp BP Pulse Ox 98.5 F 80 20 102/59 L 98 01/19/19 15:30 01/19/19 15:30 01/19/19 15:30 01/19/19 15:30 01/19/19 15:30 - Labs Labs: 01/19/19 11:06 01/19/19 11:06 PT 12.4 SECONDS (9.7-12.2) H 01/17/19 12:00 INR 1.1 01/17/19 12:00 APTT 32 SECONDS (21-34) 01/17/19 12:00 - Head Exam Head Exam: ATRAUMATIC - Eye Exam Eye Exam: Normal appearance - ENT Exam ENT Exam: Mucous Membranes Dry - Respiratory Exam Respiratory Exam: NORMAL BREATHING PATTERN - Cardiovascular Exam Cardiovascular Exam: +S1, +S2 - GI/Abdominal Exam GI & Abdominal Exam: Normal Bowel Sounds Assessment and Plan (1) Anemia Assessment & Plan: sickle cell trait menorrhagia s/p PRBC transfusion IV iron outpatient f/u Status: Acute
[2019-01-22 21:26] LABS: HEMOGLOBIN A 61.6 Percent (>96.0); HEMOGLOBIN A2 3.3 Percent (1.8-3.5); HEMOGLOBIN S 34.1 Percent (0.0-0.0)
== END 2019-01-19 18:04 | disposition home or self-care (01) | DRG 395 ==
LOC: C.ER 10:15 → C.9E 13:22 → C.5S 14:14 → OBSVTOIN 17:54
PROVIDERS: ADMIT Internal Medicine; ATTEND Internal Medicine
DX: D50.0 Iron deficiency anemia secondary to blood loss (chronic) (principal); N83.201 Unspecified ovarian cyst, right side; N92.0 Excessive and frequent menstruation with regular cycle; D25.1 Intramural leiomyoma of uterus; D57.3 Sickle-cell trait